=== PATIENT | male | born 1995 | race Caucasian/White ===

== ENCOUNTER 2016-11-08 10:18 | Emergency (ER) | payer OTHER ==
[2016-11-08] MEDS ORDERED: ONDANSETRON 4 MG/2 ML VIAL IVP STA (10:51)
[2016-11-08] MEDS ORDERED: SODIUM CHLORIDE 0.9% 1,000 ML IV STA (10:51)
[2016-11-08] MEDS ORDERED: DICYCLOMINE 10 MG/ML 2 ML AMP IM STA (10:51)
[2016-11-08] MEDS ORDERED: FAMOTIDINE 20 MG/2 ML VIAL IV STA (10:52)
--- NOTE | 2016-11-08 10:54 | ED ---
General Adult HPI - General Chief complaint: Abdominal Pain Stated complaint: vomiting and diarrhea, has 1 kidney Time Seen by Provider: 11/08/16 10:41 Source: patient, family, RN notes reviewed Mode of arrival: ambulatory Limitations: no limitations - History of Present Illness Initial comments: Patient is a pleasant 21-year-old male presenting to the emergency Department with nausea vomiting and diarrhea. Onset was around 2 AM. Patient has had 6 episodes of emesis. Patient has also had around 6 episodes of diarrhea. Patient has mild abdominal discomfort. No fever. Patient and family are concerned regarding possible dehydration because he only has one kidney. No history of chronic abdominal problems. Patient only has one kidney secondary to history of kidney cancer and it was surgically removed. No active cancer. - Related Data Previous Rx's Medication Instructions Recorded Ondansetron Odt [Zofran Odt] 4 mg PO Q8HR PRN #10 tab 11/08/16 Allergies Allergy/AdvReac Type Severity Reaction Status Date / Time No Known Allergies Allergy Verified 11/08/16 10:40 Review of Systems ROS Statement: Those systems with pertinent positive or pertinent negative responses have been documented in the HPI. ROS Other: All systems not noted in ROS Statement are negative. Constitutional: Denies: fever Eyes: Denies: eye pain ENT: Denies: ear pain Respiratory: Denies: cough, dyspnea Cardiovascular: Denies: chest pain Endocrine: Denies: fatigue Gastrointestinal: Reports: abdominal pain, nausea, vomiting, diarrhea. Denies: constipation, hematemesis Genitourinary: Denies: dysuria Musculoskeletal: Denies: back pain Skin: Denies: rash Neurological: Denies: weakness Past Medical History Past Medical History: Cancer Additional Past Medical History / Comment(s): RIGHT KIDNEY CANCER History of Any Multi-Drug Resistant Organisms: None Reported Additional Past Surgical History / Comment(s): RIGHT KIDNEY REMOVED Past Psychological History: No Psychological Hx Reported Smoking Status: Never smoker Past Alcohol Use History: Rare Past Drug Use History: None Reported General Exam Limitations: no limitations General appearance: alert, in no apparent distress Head exam: Present: atraumatic Eye exam: Present: normal appearance, PERRL ENT exam: Present: normal oropharynx Neck exam: Present: normal inspection Respiratory exam: Present: normal lung sounds bilaterally Cardiovascular Exam: Present: regular rate, normal rhythm GI/Abdominal exam: Present: soft, tenderness (Mild epigastric tenderness), normal bowel sounds. Absent: distended, guarding, rebound, rigid, pulsatile mass Extremities exam: Present: normal inspection. Absent: pedal edema, calf tenderness Neurological exam: Present: alert Psychiatric exam: Present: normal affect, normal mood Skin exam: Absent: rash Course Vital Signs 11/08/16 10:36 Temperature 97.1 F L Pulse Rate 65 Respiratory 18 Rate Blood Pressure 121/54 O2 Sat by Pulse 97 Oximetry Medical Decision Making - Medical Decision Making Patient reexamined and improved. Patient and family updated on results - Lab Data Result diagrams: 11/08/16 11:13 11/08/16 11:13 Lab Results 11/08/16 11/08/16 Range/Units 11:13 11:13 WBC 8.8 (4.0-11.0) k/uL RBC 5.65 (4.30-5.90) m/uL Hgb 17.4 (13.0-17.5) gm/dL Hct 49.6 (39.0-53.0) % MCV 87.8 (80.0-100.0) fL MCH 30.8 (25.0-35.0) pg MCHC 35.1 (31.0-37.0) g/dL RDW 12.3 (11.5-15.5) % Plt Count 179 (150-450) k/uL Sodium 142 (137-145) mmol/L Potassium 4.6 (3.5-5.1) mmol/L Chloride 104 (98-107) mmol/L Carbon Dioxide 25 (22-30) mmol/L Anion Gap 13 mmol/L BUN 17 (9-20) mg/dL Creatinine 1.27 H (0.66-1.25) mg/dL Est GFR (MDRD) Af Amer >60 (>60 ml/min/1.73 sqM) Est GFR (MDRD) Non-Af >60 (>60 ml/min/1.73 sqM) Glucose 104 H (74-99) mg/dL Calcium 9.7 (8.4-10.2) mg/dL Total Bilirubin 1.5 H (0.2-1.3) mg/dL AST 22 (17-59) U/L ALT 31 (21-72) U/L Alkaline Phosphatase 68 (38-126) U/L Total Protein 7.4 (6.3-8.2) g/dL Albumin 4.6 (3.5-5.0) g/dL Amylase 64 (30-110) U/L Lipase 45 (23-300) U/L Disposition Clinical Impression: Acute vomiting, Acute diarrhea Disposition: HOME SELF-CARE Condition: Stable Instructions: Acute Nausea and Vomiting (ED), Gastroenteritis (ED), Acute Diarrhea (ED) Additional Instructions: Please follow-up with primary care physician in the next couple days for recheck. [id number] Imodium if needed for diarrhea. Return for not tolerating fluids, uncontrolled vomiting or diarrhea, worsening abdominal pain, worsening symptoms or other concerns. Prescriptions: Ondansetron Odt [Zofran Odt] 4 mg PO Q8HR PRN #10 tab PRN Reason: Nausea Referrals: Melody Remy MD [Primary Care Provider] - 1-2 days
[2016-11-08 11:32] LABS: CH 31.9; CHCM 36.4; HCT 49.6 % (39.0-53.0); HDW 2.69; HGB 17.4 gm/dL (13.0-17.5); Immature Gran Flag Slight; MCH 30.8 pg (25.0-35.0); MCHC 35.1 g/dL (31.0-37.0); MCV 87.8 fL (80.0-100.0); Mean Platelet Volume 6.5; RBC 5.65 m/uL (4.30-5.90); RDW 12.3 % (11.5-15.5); WBC 8.8 k/uL (4.0-11.0)
--- NOTE | 2016-11-08 11:33 | XR ---
EXAMINATION TYPE: XR KUB DATE OF EXAM: 11/08/2016 11:26 AM COMPARISON: 09/30/2012 INDICATION: Abdomen pain TECHNIQUE: Single view abdomen upright view FINDINGS: There is a nonspecific bowel gas pattern. There is colon. Psoas margins are normal. No organomegaly is present. No suspicious calcifications are evident. No free air is present. No suspicious differential air-flui d levels are present. IMPRESSION: 1. Nonspecific abdomen.
[2016-11-08] MEDS ORDERED: ACETAMINOPHEN IV (For NPO) 1,000 MG in SALINE 1 100ML.BAG IVPB STA (11:43)
[2016-11-08 11:56] LABS: ALT 31 U/L (21-72); AST 22 U/L (17-59); Alkaline Phosphatase 68 U/L (38-126); Amylase 64 U/L (30-110); Anion Gap 13 mmol/L; Blood Urea Nitrogen 17 mg/dL (9-20); Calcium 9.7 mg/dL (8.4-10.2); Carbon Dioxide 25 mmol/L (22-30); Chloride 104 mmol/L (98-107); Glucose 104 mg/dL (74-99); Non-African American GFR(MDRD) >60 (>60 ml/min/1.73 sqM); Potassium 4.6 mmol/L (3.5-5.1); Sodium 142 mmol/L (137-145); Total Bilirubin 1.5 mg/dL (0.2-1.3); Total Protein 7.4 g/dL (6.3-8.2)
[2016-11-08 12:38] VITALS: BP 134/87; PULSE 88; RESP 16; TEMP 98.2
[2016-11-08 12:48] LABS: Add Differential Manual Differential
[2016-11-08 12:53] LABS: Manual Review Performed; Nucleated Red Blood Cells 0 /100 WBC (0-0); Total Cells Counted 200
== END 2016-11-08 12:38 | disposition home or self-care (01) ==
LOC: EC 10:18
DX: K52.9 Noninfective gastroenteritis and colitis, unspecified (principal); R11.2 Nausea with vomiting, unspecified; Z53.20 Procedure and treatment not carried out because of patient's decision for unspecified reasons; Z85.528 Personal history of other malignant neoplasm of kidney; Z90.5 Acquired absence of kidney
CPT/HCPCS: 99284 ×2; 96374 ×2; 96375 ×3; 96361 ×2; 36415; 80053; 82150; 83690; 85025; 74000; J2405; J0131

== ENCOUNTER 2021-09-07 11:27 | Emergency (ER) | payer OTHER ==
[2021-09-07 11:57] VITALS: TEMP 98.1
[2021-09-07] MEDS ORDERED: MORPHINE SULFATE 2 MG/ML SYRINGE IVP STA (13:10)
[2021-09-07] MEDS ORDERED: KETOROLAC 15 MG/ML 1 ML VIAL IVP STA (13:10)
[2021-09-07] MEDS ORDERED: GABAPENTIN 300 MG CAP PO STA (13:10)
--- NOTE | 2021-09-07 13:31 | ED ---
General Adult HPI - General Chief complaint: Extremity Problem,Nontraumatic Stated complaint: Rt Leg Pain Time Seen by Provider: 09/07/21 12:57 Source: patient, RN notes reviewed, old records reviewed Mode of arrival: wheelchair Limitations: physical limitation - History of Present Illness Initial comments: I evaluated the patient when he was placed in a room. Patient is a 26-year-old male with past medical history remarkable for right kidney cancer status post chemoradiation multiple years ago who presents emergency Department complaining of acute onset of severe right upper extremity pain. He states that it radiates from the lateral aspect of his right hip down the posterior aspect of his thigh and onto the anterior aspect of his knee and foreleg. He denies any trauma. States he did have an episode of sciatica multiple years ago but it typically does not cause him any issues. Denies any difficulty with urination or saddle anesthesia. Denies any lower back pain. Denies any abdominal pain, nausea, vomiting. Denies any chest pain, shortness of breath, fevers, chills, cough. Denies any history of blood clots in himself but his uncle did have a DVT. Denies any numbness of the right lower extremity. Is able to move his right low er extremity but is limited secondary to pain in the areas described above. He presents to the emergency department over concern for his current symptoms. - Related Data Previous Rx's Medication Instructions Recorded Gabapentin [Neurontin] 300 mg PO BID PRN 4 Days #8 cap 09/07/21 HYDROcodone/APAP 5-325MG [[place] 1 tab PO Q6HR PRN 3 Days #12 tab 09/07/21 5-325] Allergies Allergy/AdvReac Type Severity Reaction Status Date / Time No Known Allergies Allergy Verified 09/07/21 13:32 Review of Systems ROS Statement: Those systems with pertinent positive or pertinent negative responses have been documented in the HPI. Review of Systems: CONST: Denies fever EYES: Denies blurry vision ENT: Denies nasal congestion C/V: Denies Chest pain RESP: Denies shortness of breath GI: Denies abdominal pain : Denies dysuria SKIN: Denies rash. MSK: Endorses RLE pain NEURO: Denies headache ROS Other: All systems not noted in ROS Statement are negative. Past Medical History Past Medical History: Cancer Additional Past Medical History / Comment(s): RIGHT KIDNEY CANCER History of Any Multi-Drug Resistant Organisms: None Reported Additional Past Surgical History / Comment(s): RIGHT KIDNEY REMOVED Past Psychological History: No Psychological Hx Reported Smoking Status: Never smoker Past Alcohol Use History: Rare Past Drug Use History: None Reported General Exam - General Exam Comments Initial Comments: General: Appears in mild distress secondary to right lower extremity pain. HEAD: Normal with no signs of head trauma. EYES: PERRLA, EOMI, conjunctiva normal, no discharge. ENT: Hearing grossly intact, normal oropharynx. RESPIRATORY: Clear breath sounds bilaterally. No wheezes, rales, or rhonchi. C/V: Regular rate and rhythm. S1 and S2 auscultated, no edema, peripheral pulses 2+ and intact throughout ABD: Abd is soft, nontender, nondistended EXT: Pain over the lateral aspect of the right hip with radiation of the posterior to anterior aspect of the right thigh. No obvious deformity. No obvious swelling. SKIN: No rashes or lesions observed on exposed skin. NEURO: Alert and oriented 4. No focal sensory or strength deficit. Limitations: physical limitation Course Vital Signs 09/07/21 09/07/21 11:54 15:26 Temperature 98.1 F Pulse Rate 51 L 77 Respiratory 18 16 Rate Blood Pressure 117/80 121/52 O2 Sat by Pulse 99 98 Oximetry Medical Decision Making - Medical Decision Making The patient's presentation and physical exam, as well as his past medical history of cancer, I would like to obtain basic x-ray imaging of the lumbar spine and pelvis to rule out possibility of signs of metastasis. We will also obtain a right lower extremity duplex to rule out DVT. Basic labs will be obtained to ensure he does not have any muscle spasms secondary to electrolyte abnormalities. I discussed with him that is likely expressing muscular skeletal pain, and possible neuropathic pain which will require follow-up and possible MRI. He is having no red flag signs of lower back pain. Patient was in agreement this plan. He'll be symptomatically treated while he is waiting in the department with IV Toradol, morphine, Neurontin. Patient's duplex showed no signs of acute DVT. X-ray chest showed no fractures or subluxations were otherwise normal. Laboratory studies were also normal except for very mild leukocytosis of 11.4 which is likely reactive to his current stress. On reevaluation come patient's pain is improved. I did discuss with the patient that I believe his pain is likely musculoskeletal in nature. It could also be neuropathic. Either way, he does require outpatient MRI possibly if this is a form of sciatica. He was in agreement this plan. I do believe it is safe for him to be discharged home at this time. He will be given a work note as well as prescriptions for Neurontin and [place] for 3 days. He was in agreement this plan. Pain is somewhat improved at this time. I will provide the patient with a prescription for [place] 5, Neurontin. I instructed the patient to follow up with their PCP in the next 3 days. [I provided contact information for follow up with] neurology. I explained that the patient should return to the emergency department if they experience any worsening symptoms. Strict return precautions were discussed with the patient. The patient expressed understanding of these instructions. I answered all questions that the patient had. The patient was discharged home in fair condition with their prescriptions and follow up information. - Lab Data Result diagrams: 09/07/21 13:24 09/07/21 13:24 Lab Results 09/07/21 09/07/21 09/07/21 Range/Units 13:24 13:24 13:24 WBC 11.4 H (3.8-10.6) k/uL RBC 5.18 (4.30-5.90) m/uL Hgb 16.4 (13.0-17.5) gm/dL Hct 46.5 (39.0-53.0) % MCV 89.7 (80.0-100.0) fL MCH 31.6 (25.0-35.0) pg MCHC 35.2 (31.0-37.0) g/dL RDW 12.1 (11.5-15.5) % Plt Count 214 (150-450) k/uL MPV 7.1 Neutrophils % 89 % Lymphocytes % 6 % Monocytes % 4 % Eosinophils % 1 % Basophils % 0 % Neutrophils # 10.1 H (1.3-7.7) k/uL Lymphocytes # 0.7 L (1.0-4.8) k/uL Monocytes # 0.5 (0-1.0) k/uL Eosinophils # 0.1 (0-0.7) k/uL Basophils # 0.0 (0-0.2) k/uL PT 10.2 (9.0-12.0) sec INR 0.9 (<1.2) APTT 20.9 L (22.0-30.0) sec Sodium 137 (137-145) mmol/L Potassium 4.4 (3.5-5.1) mmol/L Chloride 102 (98-107) mmol/L Carbon Dioxide 26 (22-30) mmol/L Anion Gap 9 mmol/L BUN 12 (9-20) mg/dL Creatinine 0.97 (0.66-1.25) mg/dL Est GFR (CKD-EPI)AfAm >90 (>60 ml/min/1.73 sqM) Est GFR (CKD-EPI)NonAf >90 (>60 ml/min/1.73 sqM) Glucose 114 H (74-99) mg/dL Calcium 9.3 (8.4-10.2) mg/dL Magnesium 1.8 (1.6-2.3) mg/dL Disposition Clinical Impression: Leg pain Disposition: HOME SELF-CARE Condition: Fair Instructions (If sedation given, give patient instructions): Lumbar Radiculopathy (ED), Leg Pain (ED) Prescriptions: Gabapentin [Neurontin] 300 mg PO BID PRN 4 Days #8 cap PRN Reason: Pain HYDROcodone/APAP 5-325MG [[place] 5-325] 1 tab PO Q6HR PRN 3 Days #12 tab PRN Reason: Pain Is patient prescribed a controlled substance at d/c from ED?: Yes If prescribed controlled substance>3 days was MAPS reviewed?: Prescribed <3 Days Referrals: Jam Silva DO [Primary Care Provider] - 1-2 days Josue Olguin MD [STAFF PHYSICIAN] - 1-2 days
[2021-09-07 13:43] LABS: Basophils % (A) 0 %; Eosinophils # (A) 0.1 k/uL (0-0.7); Eosinophils % (A) 1 %; HCT 46.5 % (39.0-53.0); HGB 16.4 gm/dL (13.0-17.5); Lymphocytes # (A) 0.7 k/uL (1.0-4.8); Lymphocytes % (A) 6 %; MCH 31.6 pg (25.0-35.0); MCHC 35.2 g/dL (31.0-37.0); MCV 89.7 fL (80.0-100.0); Mean Platelet Volume 7.1; Monocytes # (A) 0.5 k/uL (0-1.0); Monocytes % (A) 4 %; Neutrophils # (A) 10.1 k/uL (1.3-7.7); Neutrophils % (A) 89 %; Platelet Count 214 k/uL (150-450); RBC 5.18 m/uL (4.30-5.90); RDW 12.1 % (11.5-15.5); WBC 11.4 k/uL (3.8-10.6)
[2021-09-07 13:57] LABS: African American GFR (CKD) >90 (>60 ml/min/1.73 sqM); Anion Gap 9 mmol/L; Blood Urea Nitrogen 12 mg/dL (9-20); Calcium 9.3 mg/dL (8.4-10.2); Carbon Dioxide 26 mmol/L (22-30); Chloride 102 mmol/L (98-107); Glucose 114 mg/dL (74-99); INR 0.9 (<1.2); Magnesium 1.8 mg/dL (1.6-2.3); Non-African American GFR(CKD) >90 (>60 ml/min/1.73 sqM); Potassium 4.4 mmol/L (3.5-5.1); Prothrombin Time 10.2 sec (9.0-12.0); Sodium 137 mmol/L (137-145)
[2021-09-07 14:06] LABS: Partial Thromboplastin Time 20.9 sec (22.0-30.0)
--- NOTE | 2021-09-07 14:17 | XR ---
EXAMINATION TYPE: XR lumbar spine 2 or 3V DATE OF EXAM: 09/07/2021 COMPARISON: NONE HISTORY: Pain TECHNIQUE: 3 views FINDINGS: Lumbar vertebra have normal spacing and alignment. Posterior elements are intact. There is no compression fracture. Sacroiliac joints appear normal. IMPRESSION: Normal lumbar spine exam.
--- NOTE | 2021-09-07 14:20 | XR ---
EXAMINATION TYPE: XR pelvis AP view DATE OF EXAM: 09/07/2021 COMPARISON: 11/08/2016 HISTORY: Pain TECHNIQUE: Single view FINDINGS: Pelvic ring is intact. Proximal femurs and hip joints are intact. Sacroiliac joints appear normal. IMPRESSION: Normal pelvis.
--- NOTE | 2021-09-07 14:30 | US ---
EXAMINATION TYPE: US venous doppler duplex LE RT DATE OF EXAM: 09/07/2021 1:11 PM COMPARISON: NONE CLINICAL HISTORY: RLE pain, evaluate for DVT. sciatic nerve pain from buttocks down through thigh, no h/o dvt SIDE PERFORMED: right TECHNIQUE: The lower extremity deep venous system is examined utilizing real time linear array sonog rody with graded compression, doppler sonography and color-flow sonography. VESSELS IMAGED: Common Femoral Vein Deep Femoral Vein Greater Saphenous Vein * Femoral Vein Popliteal Vein Small Saphenous Vein * Proximal Calf Veins (* superficial vessels) Right Leg: Negative for DVT IMPRESSION: No evidence of deep vein thrombosis in the right leg.
[2021-09-07 15:29] VITALS: BP 121/52; PULSE 77; RESP 16
[2021-09-07] MEDS ORDERED: MORPHINE SULFATE 4 MG/ML SYRINGE IVP STA (15:32)
== END 2021-09-07 16:14 | disposition home or self-care (01) ==
LOC: EC 11:27
DX: M79.604 Pain in right leg (principal)
CPT/HCPCS: 36415; 80048; 83735; 85025; 85610; 85730; 72100; 72170; 93971; 99284; 96374; 96376; 96375; J2270 ×2; J1885